=== PATIENT | male | born 1965 | race African-American/Black ===

== ENCOUNTER 2016-12-25 11:42 | Emergency (ER) | payer OTHER ==
--- NOTE | ~2016-12-25 | CR229 ---
[facility] A Service of [facility] RADIOLOGY TEXT RESULTS PATIENT: SHELIA NELSON LOCATION: [facility] : 61 UNIT #: [id number] AGE: [address]: Ham Ferris MD SEX: M ORDER DR: [id number] [facility] [address] [facility]. [place], [place] [address] [id number] MR#: [id number] Acc #: [id number] NAME: SHELIA NELSON : 1965 SEX: M STUDY DATE/TIME: 12/25/2016 11:52 UNIT: [facility] ROOM: STUDY DESCRIPTION: CR Shoulder Min 2 View Lt Attending Physician: Ham Ferris M.D. Ordering Physician: Ham Ferris M.D. Primary Care Physician: Inocencia Milian M.D. MEDICAL IMAGING REPORT This report is preliminary unless electronic signature is present EXAM Left shoulder HISTORY Shoulder pain for the past 2 weeks. TECHNIQUE 3 views of the shoulder were obtained. FINDINGS AP view with internal and external rotation of the shoulder girdle shows satisfactory relationship of the humeral head and glenoid fossa. The joint space is normal. There is no identifiable fracture or dislocation or bony destructive process about the shoulder girdle anatomy. The acromioclavicular joint is normal. There is no radiopaque foreign body in the region. IMPRESSION Normal shoulder. Dictated by... Brian Breen M.D. THIS IS AN ELECTRONICALLY VERIFIED REPORT Brian Breen M.D. at 12/25/2016 3:45 PM YULIYA/nevin TD: 12/25/2016 13:18 JOB #: [id number] MEDICAL IMAGING REPORT Page 1 of 1 COPY
== END 2016-12-25 13:13 | disposition home or self-care (01) ==
LOC: CED 11:42
DX: S46.912A Strain of unspecified muscle, fascia and tendon at shoulder and upper arm level, left arm, initial encounter (principal); X50.9XXA Other and unspecified overexertion or strenuous movements or postures, initial encounter
CPT/HCPCS: 73030; 99283

== ENCOUNTER 2016-12-28 12:01 | Emergency (ER) | payer OTHER | END 2016-12-28 12:30 | disposition home or self-care (01) | LOC: CED 12:01 | DX: M25.512 Pain in left shoulder (principal) | CPT/HCPCS: 96372; 99283; J1885 ==

== ENCOUNTER → 2017-01-01 | Outpatient (CLI) | payer OTHER ==
--- NOTE | ~2017-01-01 | MR164 ---
[facility] A Service of [facility] RADIOLOGY TEXT RESULTS PATIENT: SHELIA NELSON LOCATION: [facility] : 61 UNIT #: [id number] AGE: [address]: WENDI MADDOX SEX: M ORDER DR: [id number] [facility] [address] [facility]. [place], [place] [address] [id number] MR#: [id number] Acc #: [id number] NAME: SHELIA NELSON : 1965 SEX: M STUDY DATE/TIME: 01/01/2017 17:18 UNIT: [facility] ROOM: STUDY DESCRIPTION: MR Shoulder Wo Contrast Lt Attending Physician: Mina Waldron Referring Physician: Mian Waldron Ordering Physician: Mina Waldron Primary Care Physician: Inocencia Milian M.D. MRI CENTER REPORT This report is preliminary unless electronic signature is present. EXAM Left shoulder MRI, without contrast, 01/01/2017. HISTORY 51-year-old male with left shoulder pain after lifting ladder overhead to place on top of truck 1 week ago. No prior left shoulder surgery. COMPARISON Left shoulder x-rays, 12/24/2016. TECHNIQUE Routine unenhanced multiplanar, multisequence, high-field MR imaging of the left shoulder was performed. FINDINGS There is mild supraspinatus tendinopathy with a small partial-thickness interstitial tear of the posterior insertional tendon tear. This involves less than 50% of the tendon thickness. Mild infraspinatus tendinopathy without tear. Teres minor and subscapularis tendons are intact. Long biceps tendon is intact and well positioned in the bicipital groove. No evidence of a labral tear. Glenohumeral articular cartilage is intact. No glenohumeral effusion. There are mild degenerative changes in the acromioclavicular joint. 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 No subacromial spur. Mild inflammation of the subacromial/subdeltoid bursa. Bone marrow signal is within expected limits. The visualized musculature is unremarkable. IMPRESSION [facility] A Service of [facility] RADIOLOGY TEXT RESULTS PATIENT: SHELIA NELSON LOCATION: [facility] : 61 UNIT #: [id number] AGE: [address]: WENDI MADDOX SEX: M ORDER DR: 1. Mild supraspinatus and infraspinatus tendinopathy. There is a small partial thickness interstitial tear at the posterior insertional supraspinatus tendon, which involves less than 50% of the tendon thickness. 2. No significant labral pathology. 3. Mild acromioclavicular joint arthrosis. 4. Os acromiale. 5. Mild inflammation of the subacromial-subdeltoid bursa. Dictated by... Dipak Rodriguez M.D. THIS IS AN ELECTRONICALLY VERIFIED REPORT Dipak Rodriguez M.D. at 01/05/2017 4:38 PM ALDAIR/bruce TD: 01/05/2017 12:57 JOB #: [id number] MRI CENTER REPORT Page 1 of 1 COPY
== END | disposition home or self-care (01) ==
LOC: CMRI 15:04
DX: S43.402A Unspecified sprain of left shoulder joint, initial encounter (principal); M75.82 Other shoulder lesions, left shoulder; S46.012A Strain of muscle(s) and tendon(s) of the rotator cuff of left shoulder, initial encounter; M19.012 Primary osteoarthritis, left shoulder; M75.52 Bursitis of left shoulder
CPT/HCPCS: 73221